=== PATIENT | male | born 1980 | race Caucasian/White ===

== ENCOUNTER 2017-04-20 20:16 | Emergency (ER) | payer BC ==
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
[2017-04-21 00:38] VITALS: BP 114/79
--- NOTE | 2017-04-21 10:41 | CT ---
Head CT Technique: Multiple axial sections through the brain were obtained. Intravenous contrast was not utilized. Comparison: No previous intracranial imaging. Findings: Ventricles along with basal cisterns and sulci over the convexities are within normal limits for the patient's age. No abnormal parenchymal densities are seen. No evidence of intracranial hemorrhage. No midline shift or mass effect is seen. Bone window settings were reviewed which show the visualized sinuses to appear clear. No acute calvarial abnormality is appreciated. Impression: 1. No acute intracranial abnormality is seen. No skull fracture is identified. I agree with preliminary report issued by [facility] ([facility] report finalized on 04/20/17, 10:15 PM Central Time)
--- NOTE | 2017-04-21 10:41 | CT ---
CT cervical spine Technique: Multiple axial sections were obtained from above C1 inferiorly to the mid T2 level. Reconstructed sagittal and coronal images were reviewed. Comparison: No previous study. Findings: Non-fusion identified within the anterior arch of C1 which is a normal variant. Vertebral body heights and disc spaces are preserved. Minimal anterior osteophyte is seen at C6-C7. Visualized mastoid sinuses are clear. Minimal soft tissue density seen around the tympanic membrane on the right side, uncertain if this is within the external auditory canal or middle ear cavity. No acute fracture identified within the cervical spine. No bony central canal stenosis or neural foraminal stenosis is seen. No abnormal subluxation is seen. Impression: 1. Soft tissue density near the tympanic membrane on the right side. Uncertain if this is within the external auditory canal or middle ear cavity. This is likely chronic. 2. 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 3. No acute fracture or abnormal subluxation is seen. Diagnostic code #2 I agree with preliminary report issued by [facility] ([facility] report finalized on 04/20/17, 10:17 PM Central Time)
== END 2017-04-20 23:22 | disposition home or self-care (01) ==
LOC: JD.ED 20:16
DX: T14.8 Other injury of unspecified body region (principal); V89.0XXA Person injured in unspecified motor-vehicle accident, nontraffic, initial encounter; E11.9 Type 2 diabetes mellitus without complications; Z79.84 Long term (current) use of oral hypoglycemic drugs; E03.9 Hypothyroidism, unspecified; E66.9 Obesity, unspecified; Z68.30 Body mass index [BMI] 30.0-30.9, adult; K21.9 Gastro-esophageal reflux disease without esophagitis; Z79.899 Other long term (current) drug therapy
CPT/HCPCS: 70450; 70450-26; 72125; 72125-26; 99283; 99284-25

== ENCOUNTER → 2019-12-21 | Day surgery (SDC) | payer BC ==
[~2019-12-21] MED LIST: Albuterol 0.083% 2.5 MG/3 ML Neb Soln NEB PRN; Clindamycin Phosphate in D5W 900 MG in Premix Bag 1 BAG IV ONE; HYDROmorphone 0.5 MG/0.5 ML Syringe IVPUSH PRN; HYDROmorphone 0.5 MG/0.5 ML Syringe ONE; Ketorolac 30 MG/ML SDV ONE; Lactated Ringers 1,000 ML ONE; Lidocaine 1% 6 ML ONE; Lidocaine 1% with EPINEPHrine 1:100,000 20 ML MDV ONE; Ondansetron 4 MG/2 ML SDV IVPUSH PRN; Ondansetron 4 MG/2 ML SDV ONE; Phenylephrine 1 MG in Sodium Chloride 0.9% 10 ML IV SCH; Propofol 200 MG/20 ML SDV ONE; Sodium Chloride 0.9% 1,000 ML IV SCH; Succinylcholine/Sod PF 100 MG/5 ML SYRINGE IV ONE; diphenhydrAMINE 50 MG/ML SDV IVPUSH PRN; ePHEDrine 50 MG/ML SDV IVPUSH PRN; fentaNYL 100 MCG/2 ML SDV IVPUSH PRN; fentaNYL 250 MCG/5 ML SDV ONE
--- NOTE | 2019-12-21 14:15 | EDM.PDOC ---
ED HPI GENERAL MEDICAL PROBLEM - General Chief Complaint: Skin Complaint Stated Complaint: POSS ABSCESS (POST ULTRASOUND) Time Seen by Provider: 12/21/19 14:15 Source of Information: Reports: Patient History Limitations: Reports: No Limitations - History of Present Illness INITIAL COMMENTS - FREE TEXT/NARRATIVE: 39-year-old male presents to the ED with a painful swelling on his inner aspect of his right thigh adjacent to his scrotum on the right side. He is a type II diabetic and is appreciated that his blood sugars have been running higher the last 4 to 5 days. They are over 200 which is unusual for him. Last night he experienced some chills but did not recognize any fever. He attended the walk- in clinic today at [facility] and they identified by ultrasound that he either had a hematoma or an abscess in his right medial thigh and referred him to the ED. On examination he has a definite deep abscess to the medial aspect of his right thigh. By history he has some systemic signs of infection. Is difficult to walk and to sit. He last ate a protein shake at about 1200 hrs. today. Before that he had a granola bar at 7 this morning. First appreciated pain and some localized swelling in this area last December 16. Patient has not appreciated any drainage from the area. Onset: Gradual Onset Date: 12/17/19 Duration: Day(s):, Getting Worse (Days) Location: Reports: Lower Extremity, Right (Inner aspect of the groin medial right thigh adjacent to the scrotum) Quality: Reports: Ache, Burning, Throbbing Severity: Moderate Improves with: Reports: None Worsens with: Reports: Movement Context: Reports: Other (Maia is occurrence). Denies: Activity, Exercise, Lifting, Sick Contact, Trauma Associated Symptoms: Reports: Fever/Chills, Loss of Appetite (Feels last night and again mildly this morning), Malaise, Other (Sugars have been more elevated than normal). Denies: Nausea/Vomiting Treatments WARRANTY MANAGER: Reports: Acetaminophen Scrotum Pain Score (Numeric/FACES): 2 - Related Data Allergies Allergy/AdvReac Type Severity Reaction Status Date / Time No Known Allergies Allergy Verified 12/21/19 13:00 Home Meds: Home Meds Dulaglutide [Trulicity] 1.5 mg SQ WEEKLY 04/20/17 [History] Gabapentin [Neurontin] 600 mg PO DAILY 04/20/17 [History] Levothyroxine Sodium [Synthroid] 75 mcg PO DAILY 04/20/17 [History] SitaGLIPtin [Januvia] 100 mg PO DAILY 04/20/17 [History] metFORMIN [Glucophage XR] 750 mg PO BEDTIME 04/20/17 [History] Empagliflozin [Jardiance] 25 mg PO DAILY 12/21/19 [History] Venlafaxine [Effexor] 37.5 mg PO DAILY 12/21/19 [History] Past Medical History Cardiovascular History: Reports: High Cholesterol Respiratory History: Reports: None Gastrointestinal History: Reports: GERD Genitourinary History: Reports: None Musculoskeletal History: Reports: Fracture Psychiatric History: Reports: Mood Swings Endocrine/Metabolic History: Reports: Diabetes, Type II, Hypothyroidism, Obesity /BMI 30+ Hematologic History: Reports: None Immunologic History: Reports: None Oncologic (Cancer) History: Reports: None - Infectious Disease History Infectious Disease History: Reports: None - Past Surgical History HEENT Surgical History: Reports: Myringotomy w Tube(s), Tonsillectomy GI Surgical History: Reports: Appendectomy Endocrine Surgical History: Reports: Thyroidectomy Neurological Surgical History: Reports: Lumbar Spine Musculoskeletal Surgical History: Reports: Arthroscopic Knee Dermatological Surgical History: Reports: Other (See Below) Social & Family History - Family History Family Medical History: Noncontributory - Tobacco Use Smoking Status *Q: Never Smoker - Caffeine Use Caffeine Use: Reports: Coffee, Soda - Recreational Drug Use Recreational Drug Use: No - Living Situation & Occupation Living situation: Reports: , with Spouse Occupation: Employed ([employer]) [facility] [facility] - Review of Systems Review Of Systems: See Below Constitutional: Reports: Chills, Malaise, Weakness, Fatigue, Decreased Appetite HEENT: Reports: No Symptoms Respiratory: Reports: No Symptoms Cardiovascular: Reports: No Symptoms Endocrine: Reports: Fatigue (Sugars have been running higher than normal over 200 which is unusual for him.), High Glucose GI/Abdominal: Reports: No Symptoms : Reports: No Symptoms Musculoskeletal: Reports: Other (Pain and swelling medial aspect of his right thigh) Skin: Reports: Other (Development of an abscess on the medial right thigh basically in the inguinal fold adjacent to the scrotum on the right side) Neurological: Reports: No Symptoms Psychiatric: Reports: No Symptoms Hematologic/Lymphatic: Reports: No Symptoms Immunologic: Reports: No Symptoms ED EXAM, SKIN/RASH Exam: See Below Exam Limited By: No Limitations General Appearance: Alert, WD/WN, No Apparent Distress, Other (Which are is 35.8 according to the nurses which is incorrect. Heart rate is 89 respiratory to 16 BP 1 5897 pulse ox 100%.) Eye Exam: Bilateral Eye: Normal Inspection Throat/Mouth: Normal Inspection, Normal Lips, Normal Oropharynx Head: Atraumatic, Normocephalic Neck: Normal Inspection, Supple, Non-Tender, Full Range of Motion Respiratory/Chest: No Respiratory Distress, Lungs Clear, Normal Breath Sounds, No Accessory Muscle Use Cardiovascular: Normal Peripheral Pulses, Regular Rate, Rhythm, No Edema, No Gallop, No Murmur, No Rub Peripheral Pulses: 3+: Posterior Tibial (L), Posterior Tibial (R), Dorsalis Pedis (L), Dorsalis Pedis (R) GI/Abdominal: Normal Bowel Sounds, Soft, Non-Tender, No Organomegaly, No Mass, Pelvis Stable, Other ([place] girth limits ability to palpate solid organs.) (Male) Exam: Other (He has a large scrotum both testes are within normal limits. There is no active infection of the scrotal wall.) Back Exam: Normal Inspection, Full Range of Motion. No: CVA Tenderness (L), CVA Tenderness (R) Extremities: Other (Patient has an abscess that measures clinically 7 cm x 5 cm in an oval shape medial aspect of the right thigh adjacent to the inguinal groin crease. Eroded on the surface it is warm to palpation and very tender. Presents an abscess which is quite deep.) Neurological: Alert, Oriented, CN II-XII Intact, Normal Cognition Psychiatric: Normal Affect, Normal Mood Skin: Warm, Dry, Normal Color, Erythema, Other (And has an abscess inner aspect of right thigh at the inguinal crease measuring 7 x 5 cm and very tender to palpation.) Location, Skin: Lower Extremity, Right (Right inguinal crease area) Associated features: Warmth, Tenderness, Swelling, Crusting Course - Vital Signs Last Recorded V/S: Last Vital Signs Temp 35.8 C L 12/21/19 12:56 Pulse 89 12/21/19 12:56 Resp 16 12/21/19 12:56 BP 158/97 H 12/21/19 12:56 Pulse Ox 100 12/21/19 12:56 - Orders/Labs/Meds Orders: Active Orders 24 hr Category Date Time Status Admission Status [Patient Status] [ADT] Routine ADT 12/21/19 17:45 Active CULTURE BLOOD [BC] Stat Lab 12/21/19 14:39 Received CULTURE BLOOD [BC] Stat Lab 12/21/19 14:48 Received Sodium Chloride 0.9% [Normal Saline] 1,000 ml Med 12/21/19 14:30 Active IV ASDIRECTED Blood Culture x2 Reflex Set [OM.PC] Stat Oth 12/21/19 14:24 Ordered Schedule Procedure [COMM] Stat Oth 12/21/19 17:45 Ordered Medication Orders Sodium Chloride (Normal Saline) 1,000 mls @ 150 mls/hr IV ASDIRECTED JAYLEN Last Admin: 12/21/19 15:01 Dose: 150 mls/hr Labs: Laboratory Tests 12/21/19 12/21/19 12/21/19 Range/Units 14:48 14:48 14:48 WBC 7.81 (4.23-9.07) K/mm3 RBC 5.29 (4.63-6.08) M/mm3 Hgb 14.2 (13.7-17.5) gm/dl Hct 42.7 (40.1-51.0) % MCV 80.7 (79.0-92.2) fl MCH 26.8 (25.7-32.2) pg MCHC 33.3 (32.2-35.5) g/dl RDW Std Deviation 41.7 (35.1-43.9) fL Plt Count 181 (163-337) K/mm3 MPV 9.5 (9.4-12.3) fl Neutrophils % (Manual) 58 (40-60) % Band Neutrophils % 0 (0-10) % Lymphocytes % (Manual) 29 (20-40) % Atypical Lymphs % 1 % Monocytes % (Manual) 6 (2-10) % Eosinophils % (Manual) 6 (0.8-7.0) % Basophils % (Manual) 0 L (0.2-1.2) Platelet Estimate Adequate Poikilocytosis 1+ slight Ovalocytes 1+ slight RBC Morph Comment Not Reportable Sodium 139 (136-145) mEq/L Potassium 4.1 (3.5-5.1) mEq/L Chloride 102 (98-107) mEq/L Carbon Dioxide 25 (21-32) mEq/L Anion Gap 16.1 H (5-15) BUN 19 H (7-18) mg/dL Creatinine 1.1 (0.7-1.3) mg/dL Est Cr Clr Drug Dosing 105.86 mL/min Estimated GFR (MDRD) > 60 (>60) mL/min BUN/Creatinine Ratio 17.3 (14-18) Glucose 171 H (74-106) mg/dL POC Glucose (70-105) mg/dL Hemoglobin A1c 7.80 H (4.50-6.20) % Calcium 9.4 (8.5-10.1) mg/dL Magnesium 2.0 (1.8-2.4) mg/dl Total Bilirubin 1.0 (0.2-1.0) mg/dL AST 29 (15-37) U/L ALT 62 (16-63) U/L Alkaline Phosphatase 70 (46-116) U/L C-Reactive Protein 2.5 H* (<1.0) mg/dL Total Protein 8.0 (6.4-8.2) g/dl Albumin 4.3 (3.4-5.0) g/dl Globulin 3.7 gm/dL Albumin/Globulin Ratio 1.2 (1-2) 12/21/19 Range/Units 18:21 WBC (4.23-9.07) K/mm3 RBC (4.63-6.08) M/mm3 Hgb (13.7-17.5) gm/dl Hct (40.1-51.0) % MCV (79.0-92.2) fl MCH (25.7-32.2) pg MCHC (32.2-35.5) g/dl RDW Std Deviation (35.1-43.9) fL Plt Count (163-337) K/mm3 MPV (9.4-12.3) fl Neutrophils % (Manual) (40-60) % Band Neutrophils % (0-10) % Lymphocytes % (Manual) (20-40) % Atypical Lymphs % % Monocytes % (Manual) (2-10) % Eosinophils % (Manual) (0.8-7.0) % Basophils % (Manual) (0.2-1.2) Platelet Estimate Poikilocytosis Ovalocytes RBC Morph Comment Sodium (136-145) mEq/L Potassium (3.5-5.1) mEq/L Chloride (98-107) mEq/L Carbon Dioxide (21-32) mEq/L Anion Gap (5-15) BUN (7-18) mg/dL Creatinine (0.7-1.3) mg/dL Est Cr Clr Drug Dosing mL/min Estimated GFR (MDRD) (>60) mL/min BUN/Creatinine Ratio (14-18) Glucose (74-106) mg/dL POC Glucose 114 H (70-105) mg/dL Hemoglobin A1c (4.50-6.20) % Calcium (8.5-10.1) mg/dL Magnesium (1.8-2.4) mg/dl Total Bilirubin (0.2-1.0) mg/dL AST (15-37) U/L ALT (16-63) U/L Alkaline Phosphatase (46-116) U/L C-Reactive Protein (<1.0) mg/dL Total Protein (6.4-8.2) g/dl Albumin (3.4-5.0) g/dl Globulin gm/dL Albumin/Globulin Ratio (1-2) Meds: Medications Generic Name Dose Route Start Last Admin Trade Name Freq PRN Reason Stop Dose Admin Sodium Chloride 1,000 mls @ 150 mls/hr 12/21/19 14:30 12/21/19 15:01 Normal Saline IV 150 mls/hr ASDIRECTED JAYLEN Administration Discontinued Medications Generic Name Dose Route Start Last Admin Trade Name Freq PRN Reason Stop Dose Admin Fentanyl Confirm 12/21/19 18:05 Sublimaze Administered 12/21/19 18:06 Dose 250 mcg .ROUTE .STK-MED ONE Hydromorphone HCl Confirm 12/21/19 18:04 Dilaudid Administered 12/21/19 18:05 Dose 0.5 mg .ROUTE .STK-MED ONE Clindamycin Phosphate 900 mg/ 50 mls @ 100 mls/hr 12/21/19 14:25 12/21/19 15: 02 Premix IV 12/21/19 14:54 100 mls/hr ONETIME ONE Administration Lidocaine HCl Confirm 12/21/19 18:04 Xylocaine-Mpf 1% Administered 12/21/19 18:05 Dose 6 mls @ as directed .ROUTE .STK-MED ONE Lactated Ringer's Confirm 12/21/19 18:04 Ringers, Lactated Administered 12/21/19 18:05 Dose 1,000 mls @ as directed .ROUTE .STK-MED ONE Ketorolac Tromethamine Confirm 12/21/19 18:04 Toradol Administered 12/21/19 18:05 Dose 30 mg .ROUTE .STK-MED ONE Lidocaine/Epinephrine Confirm 12/21/19 18:08 Xylocaine 1% With Epinephrine 1:100,000 Administered 12/21/19 18:09 Dose 20 ml .ROUTE .STK-MED ONE Ondansetron HCl Confirm 12/21/19 18:04 Zofran Administered 12/21/19 18:05 Dose 4 mg .ROUTE .STK-MED ONE Propofol Confirm 12/21/19 18:04 Diprivan 20 Ml Administered 12/21/19 18:05 Dose 400 mg .ROUTE .STK-MED ONE Propofol Confirm 12/21/19 18:05 Diprivan 20 Ml Administered 12/21/19 18:06 Dose 200 mg .ROUTE .STK-MED ONE - Radiology Interpretation Free Text/Narrative:: 39-year-old male presents to the ED not feeling well for the last 3 to 4 days. He recognizes blood sugars have been running over 200 which is abnormal for him as well. He states over the last 4 to 5 days he is noted a gradual increased swelling on the inner aspect of his right thigh to the point that it is hard to walk and sit at this time. He had chills last night and chills again this morning. On examination he has an obvious abscess oval-shaped larger than the hands a medial aspect of the right thigh in the inguinal fold. It is a very deep abscess and puts him at risk of days gangrene. He is a type II diabetic but states that his control overall has been very good. He will have IV normal saline at 150 mils per hour started. Will be given Dilaudid 1 mg IV for pain relief with Reglan 10 mg IV. Routine labs including blood cultures x2 will be collected. He will then receive clindamycin 900 mg IV. We will have the surgeon see him in consultation due to the very difficult area to get that and he is over 300 pounds. The abscess appears to go very deep and needs to be opened and drained and the loculations broken down to prevent aggressive spread of infection in a vulnerable area and a diabetic. - Re-Assessments/Exams Free Text/Narrative Re-Assessment/Exam: 12/21/19 15:25 I was able to speak with Dr. Mane and he will see the patient after the office is finished since the patient ate at noon he really is not an operative candidate till after 430 to 5 PM today. Time none of the labs are back. 12/21/19 15:56 Labs reveal total white count of 7.81 with differential pending hemoglobin is 14.2 with hematocrit of 42.7. Platelet counts 181,000. Sodium 139 with a potassium of 4.1. Chloride 102 with a bicarb of 25. Anion gap is 16.1. BUN is 19 creatinine is 1.1. Glucose is 171. Hemoglobin A1c was 7.80. Calcium is 9.4 magnesium is 2.0 liver function is normal C-reactive protein minimally elevated at 2.5. Total protein is 8.0 with an albumin fraction of 4.3. 12/21/19 17:08 patient is resting comfortably at this time. We are awaiting consultation with Dr. Mane. 12/21/19 17:26 Dr Mane is her and will see the patient in the ED. 12/21/19 17:51 Dr. Mane has decided to take this fellow to the OR. He last had a protein shake at noon today and therefore should be cleared by anesthesia. His incision and drainage of the large abscess in his right inguinal fold and medial thigh. 12/21/19 18:38 we did finally get the over read on ultrasound performed earlier today at [facility]. The over read indicates that within the right groin there is a complex appearing lesion measuring 1.8 x 1.4 x 2.2 cm without significant vascular flow within it centrally. This central aspect of it is primarily hypo-/anechoic suggesting underlying fluid. Increased vascularity around the fluid collection. Overall findings are suggestive of underlying abscess. Testicles are normal in size. Echogenicity and Doppler evaluation no districts discrete testicular mass identified the right and left epididymis are normal Departure - Departure Time of Disposition: 17:52 Disposition: DC/Tfer to Critical Access [facility] Condition: Fair Clinical Impression: Abscess of right groin - Discharge Information *PRESCRIPTION DRUG MONITORING PROGRAM REVIEWED*: Not Applicable *COPY OF PRESCRIPTION DRUG MONITORING REPORT IN PATIENT MIKAYLA: Not Applicable Sepsis Event Note - Evaluation Sepsis Screening Result: No Definite Risk - Focused Exam Vital Signs: Vital Signs Temp Pulse Resp BP Pulse Ox 12/21/19 12:56 35.8 C L 89 16 158/97 H 100 Date Exam was Performed: 12/21/19 Time Exam was Performed: 18:38 - My Orders Last 24 Hours: My Active Orders 12/21/19 14:24 Blood Culture x2 Reflex Set [OM.PC] Stat 12/21/19 14:30 Sodium Chloride 0.9% [Normal Saline] 1,000 ml IV ASDIRECTED 12/21/19 14:39 CULTURE BLOOD [BC] Stat 12/21/19 14:48 CULTURE BLOOD [BC] Stat 12/21/19 17:45 Admission Status [Patient Status] [ADT] Routine Schedule Procedure [COMM] Stat - Assessment/Plan Last 24 Hours: My Active Orders 12/21/19 14:24 Blood Culture x2 Reflex Set [OM.PC] Stat 12/21/19 14:30 Sodium Chloride 0.9% [Normal Saline] 1,000 ml IV ASDIRECTED 12/21/19 14:39 CULTURE BLOOD [BC] Stat 12/21/19 14:48 CULTURE BLOOD [BC] Stat 12/21/19 17:45 Admission Status [Patient Status] [ADT] Routine Schedule Procedure [COMM] Stat
[2019-12-21 15:50] LABS: HEMOGLOBIN A1C 7.8 % (4.50-6.20)
--- NOTE | 2019-12-21 17:47 | PCM.PREANE ---
Preanesthetic Assessment - Anesthesia/Transfusion/Family Hx Anesthesia History: Prior Anesthesia Without Reaction Family History of Anesthesia Reaction: No Transfusion History: No Prior Transfusion(s) Intubation History: Unknown - Review of Systems General: No Symptoms, Fatigue, Malaise Pulmonary: No Symptoms (ETOH: occasionally) Cardiovascular: No Symptoms (elevated cholesterol) Gastrointestinal: No Symptoms (GERD-controlled), Decreased Appetite Neurological: No Symptoms (History of back surgery. No chronic back pain noted today) Other: Reports: None (Mood swings-effexor), Diabetes (blood sugar @ 1448= 171, repeat @ 5890=798), Thyroid Problems (hypothyroid) - Physical Assessment NPO Status Date: 12/21/19 NPO Status Time: 12:00 Vital Signs: Last Vital Signs Temp 35.8 C L 12/21/19 12:56 Pulse 89 12/21/19 12:56 Resp 16 12/21/19 12:56 BP 158/97 H 12/21/19 12:56 Pulse Ox 100 12/21/19 12:56 Height: 1.88 m Weight: 156.489 kg ASA Class: 2E Mental Status: Alert & Oriented x3 Airway Class: Mallampati = 2 Dentition: Reports: Normal Dentition, Caries Thyro-Mental Finger Breadths: 3 Mouth Opening Finger Breadths: 3 ROM/Head Extension: Full Lungs: Clear to Auscultation, Normal Respiratory Effort Cardiovascular: Regular Rate, Regular Rhythm, No Murmurs - Lab Values: Laboratory Last Values WBC 7.81 K/mm3 (4.23-9.07) 12/21/19 14:48 RBC 5.29 M/mm3 (4.63-6.08) 12/21/19 14:48 Hgb 14.2 gm/dl (13.7-17.5) 12/21/19 14:48 Hct 42.7 % (40.1-51.0) 12/21/19 14:48 MCV 80.7 fl (79.0-92.2) 12/21/19 14:48 MCH 26.8 pg (25.7-32.2) 12/21/19 14:48 MCHC 33.3 g/dl (32.2-35.5) 12/21/19 14:48 RDW Std Deviation 41.7 fL (35.1-43.9) 12/21/19 14:48 Plt Count 181 K/mm3 (163-337) 12/21/19 14:48 MPV 9.5 fl (9.4-12.3) 12/21/19 14:48 Neutrophils % (Manual) 58 % (40-60) 12/21/19 14:48 Band Neutrophils % 0 % (0-10) 12/21/19 14:48 Lymphocytes % (Manual) 29 % (20-40) 12/21/19 14:48 Atypical Lymphs % 1 % 12/21/19 14:48 Monocytes % (Manual) 6 % (2-10) 12/21/19 14:48 Eosinophils % (Manual) 6 % (0.8-7.0) 12/21/19 14:48 Basophils % (Manual) 0 (0.2-1.2) L 12/21/19 14:48 Platelet Estimate Adequate 12/21/19 14:48 Poikilocytosis 1+ slight 12/21/19 14:48 Ovalocytes 1+ slight 12/21/19 14:48 RBC Morph Comment Not Reportable 12/21/19 14:48 Sodium 139 mEq/L (136-145) 12/21/19 14:48 Potassium 4.1 mEq/L (3.5-5.1) 12/21/19 14:48 Chloride 102 mEq/L (98-107) 12/21/19 14:48 Carbon Dioxide 25 mEq/L (21-32) 12/21/19 14:48 Anion Gap 16.1 (5-15) H 12/21/19 14:48 BUN 19 mg/dL (7-18) H 12/21/19 14:48 Creatinine 1.1 mg/dL (0.7-1.3) 12/21/19 14:48 Est Cr Clr Drug Dosing 105.86 mL/min 12/21/19 14:48 Estimated GFR (MDRD) > 60 mL/min (>60) 12/21/19 14:48 BUN/Creatinine Ratio 17.3 (14-18) 12/21/19 14:48 Glucose 171 mg/dL (74-106) H 12/21/19 14:48 Hemoglobin A1c 7.80 % (4.50-6.20) H 12/21/19 14:48 Calcium 9.4 mg/dL (8.5-10.1) 12/21/19 14:48 Magnesium 2.0 mg/dl (1.8-2.4) 12/21/19 14:48 Total Bilirubin 1.0 mg/dL (0.2-1.0) 12/21/19 14:48 AST 29 U/L (15-37) 12/21/19 14:48 ALT 62 U/L (16-63) 12/21/19 14:48 Alkaline Phosphatase 70 U/L (46-116) 12/21/19 14:48 C-Reactive Protein 2.5 mg/dL (<1.0) H* 12/21/19 14:48 Total Protein 8.0 g/dl (6.4-8.2) 12/21/19 14:48 Albumin 4.3 g/dl (3.4-5.0) 12/21/19 14:48 Globulin 3.7 gm/dL 12/21/19 14:48 Albumin/Globulin Ratio 1.2 (1-2) 12/21/19 14:48 Above labs reviewed and noted and within acceptable ranges to proceed with procedure. - Allergies Allergies/Adverse Reactions: Allergies Allergy/AdvReac Type Severity Reaction Status Date / Time No Known Allergies Allergy Verified 12/21/19 13:00 - Anesthesia Plan Pre-Op Medication Ordered: None - Acknowledgements Anesthesia Type Planned: General Anesthesia Pt an Appropriate Candidate for the Planned Anesthesia: Yes Alternatives and Risks of Anesthesia Discussed w Pt/Guardian: Yes Pt/Guardian Understands and Agrees with Anesthesia Plan: Yes PreAnesthesia Questionnaire Cardiovascular History: Reports: High Cholesterol Respiratory History: Reports: None Gastrointestinal History: Reports: GERD Genitourinary History: Reports: None Musculoskeletal History: Reports: Fracture Psychiatric History: Reports: Mood Swings Endocrine/Metabolic History: Reports: Diabetes, Type II, Hypothyroidism, Obesity /BMI 30+ Hematologic History: Reports: None Immunologic History: Reports: None Oncologic (Cancer) History: Reports: None - Infectious Disease History Infectious Disease History: Reports: None - Past Surgical History HEENT Surgical History: Reports: Myringotomy w Tube(s), Tonsillectomy GI Surgical History: Reports: Appendectomy Endocrine Surgical History: Reports: Thyroidectomy Neurological Surgical History: Reports: Lumbar Spine Musculoskeletal Surgical History: Reports: Arthroscopic Knee Dermatological Surgical History: Reports: Other (See Below) - SUBSTANCE USE Smoking Status *Q: Never Smoker Recreational Drug Use History: No - HOME MEDS Home Medications: Home Meds Dulaglutide [Trulicity] 1.5 mg SQ WEEKLY 04/20/17 [History] Gabapentin [Neurontin] 600 mg PO DAILY 04/20/17 [History] Levothyroxine Sodium [Synthroid] 75 mcg PO DAILY 04/20/17 [History] SitaGLIPtin [Januvia] 100 mg PO DAILY 04/20/17 [History] metFORMIN [Glucophage XR] 750 mg PO BEDTIME 04/20/17 [History] Empagliflozin [Jardiance] 25 mg PO DAILY 12/21/19 [History] Venlafaxine [Effexor] 37.5 mg PO DAILY 12/21/19 [History] - CURRENT (IN HOUSE) MEDS Current Meds: Current Medications Sodium Chloride (Normal Saline) 1,000 mls @ 150 mls/hr IV ASDIRECTED [facility] Last Admin: 12/21/19 15:01 Dose: 150 mls/hr Discontinued Medications Clindamycin Phosphate 900 mg/ (Premix) 50 mls @ 100 mls/hr IV ONETIME ONE Stop: 12/21/19 14:54 Last Admin: 12/21/19 15:02 Dose: 100 mls/hr
--- NOTE | 2019-12-21 18:09 | PCM.CONS ---
H&P History of Present Illness - General Date of Service: 12/21/19 Admit Problem/Dx: Admission Diagnosis/Problem Admission Diagnosis/Problem Abscess of peritoneum Source of Information: Patient History Limitations: Reports: No Limitations - History of Present Illness Initial Comments - Free Text/Narative: Patient noted a small bump on his right perineum over the past week. It has grown since and has gotten more tender. Tenderness is usually mild to moderate, dull, worse with activity and better with rest. He has not fevers but had chills yesterday. Has hx of pilonidal cyst s/p excision many yrs ago. Has hx of prior small skin abscesses not requiring surgical drainage. Onset of Symptoms: Reports: Gradual Duration of Symptoms: Reports: Getting Worse Location: Reports: Other (perineal) Quality: Reports: Dull Severity: Moderate Improves with: Reports: Immobilization Worsens with: Reports: Movement Associated Symptoms: Reports: Fever/Chills (chills) Scrotum Pain Score (Numeric/FACES): 2 - Related Data Allergies/Adverse Reactions: Allergies Allergy/AdvReac Type Severity Reaction Status Date / Time No Known Allergies Allergy Verified 12/21/19 13:00 Home Medications: Home Meds Dulaglutide [Trulicity] 1.5 mg SQ WEEKLY 04/20/17 [History] Gabapentin [Neurontin] 600 mg PO DAILY 04/20/17 [History] Levothyroxine Sodium [Synthroid] 75 mcg PO DAILY 04/20/17 [History] SitaGLIPtin [Januvia] 100 mg PO DAILY 04/20/17 [History] metFORMIN [Glucophage XR] 750 mg PO BEDTIME 04/20/17 [History] Empagliflozin [Jardiance] 25 mg PO DAILY 12/21/19 [History] Venlafaxine [Effexor] 37.5 mg PO DAILY 12/21/19 [History] Past Medical History Cardiovascular History: Reports: High Cholesterol Respiratory History: Reports: None Gastrointestinal History: Reports: GERD Genitourinary History: Reports: None Musculoskeletal History: Reports: Fracture Psychiatric History: Reports: Mood Swings Endocrine/Metabolic History: Reports: Diabetes, Type II, Hypothyroidism, Obesity /BMI 30+ Hematologic History: Reports: None Immunologic History: Reports: None Oncologic (Cancer) History: Reports: None - Infectious Disease History Infectious Disease History: Reports: None - Past Surgical History HEENT Surgical History: Reports: Myringotomy w Tube(s), Tonsillectomy GI Surgical History: Reports: Appendectomy Endocrine Surgical History: Reports: Thyroidectomy Neurological Surgical History: Reports: Lumbar Spine Musculoskeletal Surgical History: Reports: Arthroscopic Knee Dermatological Surgical History: Reports: Other (See Below) Social & Family History - Family History Family Medical History: Noncontributory - Tobacco Use Smoking Status *Q: Never Smoker - Caffeine Use Caffeine Use: Reports: Coffee, Soda - Recreational Drug Use Recreational Drug Use: No - Living Situation & Occupation Living situation: Reports: , with Spouse Occupation: Employed ([employer]) H&P Review of Systems - Review of Systems: Review Of Systems: See Below General: Reports: No Symptoms HEENT: Reports: No Symptoms Pulmonary: Reports: No Symptoms Cardiovascular: Reports: No Symptoms Gastrointestinal: Reports: No Symptoms Genitourinary: Reports: No Symptoms Musculoskeletal: Reports: No Symptoms Skin: Reports: Other (right perineal abscess) Psychiatric: Reports: No Symptoms Neurological: Reports: No Symptoms Exam - Exam Exam: See Below - Vital Signs Vital Signs: Last Vital Signs Temp 96.5 F L 12/21/19 12:56 Pulse 89 12/21/19 12:56 Resp 16 12/21/19 12:56 BP 158/97 H 12/21/19 12:56 Pulse Ox 100 12/21/19 12:56 Weight: 156.489 kg - Exam General: Alert, Oriented, Cooperative, Mild Distress Lungs: Clear to Auscultation, Normal Respiratory Effort Cardiovascular: Regular Rate, Regular Rhythm, Normal S1, Normal S2 GI/Abdominal Exam: Normal Bowel Sounds, Soft, Non-Tender (Male) Exam: No Hernia, Other (there is induration and fluctance on the right aspect of the penile base ) - Patient Data Lab Results Last 24 hrs: Laboratory Results - last 24 hr 12/21/19 12/21/19 12/21/19 Range/Units 14:48 14:48 14:48 WBC 7.81 (4.23-9.07) K/mm3 RBC 5.29 (4.63-6.08) M/mm3 Hgb 14.2 (13.7-17.5) gm/dl Hct 42.7 (40.1-51.0) % MCV 80.7 (79.0-92.2) fl MCH 26.8 (25.7-32.2) pg MCHC 33.3 (32.2-35.5) g/dl RDW Std Deviation 41.7 (35.1-43.9) fL Plt Count 181 (163-337) K/mm3 MPV 9.5 (9.4-12.3) fl Neutrophils % (Manual) 58 (40-60) % Band Neutrophils % 0 (0-10) % Lymphocytes % (Manual) 29 (20-40) % Atypical Lymphs % 1 % Monocytes % (Manual) 6 (2-10) % Eosinophils % (Manual) 6 (0.8-7.0) % Basophils % (Manual) 0 L (0.2-1.2) Platelet Estimate Adequate Poikilocytosis 1+ slight Ovalocytes 1+ slight RBC Morph Comment Not Reportable Sodium 139 (136-145) mEq/L Potassium 4.1 (3.5-5.1) mEq/L Chloride 102 (98-107) mEq/L Carbon Dioxide 25 (21-32) mEq/L Anion Gap 16.1 H (5-15) BUN 19 H (7-18) mg/dL Creatinine 1.1 (0.7-1.3) mg/dL Est Cr Clr Drug Dosing 105.86 mL/min Estimated GFR (MDRD) > 60 (>60) mL/min BUN/Creatinine Ratio 17.3 (14-18) Glucose 171 H (74-106) mg/dL Hemoglobin A1c 7.80 H (4.50-6.20) % Calcium 9.4 (8.5-10.1) mg/dL Magnesium 2.0 (1.8-2.4) mg/dl Total Bilirubin 1.0 (0.2-1.0) mg/dL AST 29 (15-37) U/L ALT 62 (16-63) U/L Alkaline Phosphatase 70 (46-116) U/L C-Reactive Protein 2.5 H* (<1.0) mg/dL Total Protein 8.0 (6.4-8.2) g/dl Albumin 4.3 (3.4-5.0) g/dl Globulin 3.7 gm/dL Albumin/Globulin Ratio 1.2 (1-2) Result Diagrams: 12/21/19 14:48 12/21/19 14:48 Sepsis Event Note - Evaluation Sepsis Screening Result: No Definite Risk - Focused Exam Vital Signs: Vital Signs Temp Pulse Resp BP Pulse Ox 12/21/19 12:56 96.5 F L 89 16 158/97 H 100 Date Exam was Performed: 12/21/19 Time Exam was Performed: 18:04 Consult PN Assessment/Plan Procedures: Procedures ASSAY OF CREATININE (09/22/17) CT HEAD/BRAIN W/O DYE (04/20/17) CT NECK SPINE W/O DYE (04/20/17) EMERGENCY DEPT VISIT (04/20/17) MRI LUMBAR SPINE W/O & W/DYE (09/22/17) ROUTINE VENIPUNCTURE (09/22/17) US EXAM SCROTUM (09/17/17) VASCULAR STUDY (09/17/17) X-RAY EXAM L-2 SPINE 4/>VWS (10/14/16) Problem List Initiated/Reviewed/Updated: No Plan: Has right perineal abscess. He would like surgical drainage. Cannot tolerate bedside I&D due to pain therefore wants sedation. I discussed with him risks, benefits and alternatives. Risks discussed include but not limited to bleeding, injury to adjacent structures, recurrence, need for further care. Wound care including BID packing were reviewed. Informed consent was obtained.
--- NOTE | 2019-12-21 19:42 | PCM.POSTAN ---
POST ANESTHESIA ASSESSMENT - MENTAL STATUS Mental Status: Alert - VITAL SIGNS Vital Signs: Last Vital Signs Temp 37.0 C 12/21/19 19:40 Pulse 94 12/21/19 19:40 Resp 18 12/21/19 19:40 BP 132/87 12/21/19 19:40 Pulse Ox 98 12/21/19 19:40 - RESPIRATORY Respiratory Status: Respiratory Rate WNL, Airway Patent, O2 Saturation Stable - CARDIOVASCULAR CV Status: Pulse Rate WNL, Blood Pressure Stable - GASTROINTESTINAL GI Status: No Symptoms - POST OP HYDRATION Hydration Status: Adequate & Stable
--- NOTE | 2019-12-21 19:43 | PCM48HPAN ---
Post Anesthesia Note - EVALUATION WITHIN 48HRS OF ANESTHETIC Vital Signs in Normal Range: Yes Patient Participated in Evaluation: Yes Respiratory Function Stable: Yes Airway Patent: Yes Cardiovascular Function Stable: Yes Hydration Status Stable: Yes Pain Control Satisfactory: Yes Nausea and Vomiting Control Satisfactory: Yes Mental Status Recovered: Yes Vital Signs: Last Vital Signs Temp 37.0 C 12/21/19 19:40 Pulse 94 12/21/19 19:40 Resp 18 12/21/19 19:40 BP 132/87 12/21/19 19:40 Pulse Ox 98 12/21/19 19:40
[2019-12-21 20:12] VITALS: BP 123/73; PULSE 90
--- NOTE | 2019-12-21 20:49 | OR ---
DATE OF OPERATION: 12/21/2019 SURGEON: Karina Mane MD PREOPERATIVE DIAGNOSIS: Right perineal abscess. POSTOPERATIVE DIAGNOSIS: Right perineal abscess. OPERATION PERFORMED: Incision and drainage of right perineal abscess. ANESTHESIA: General endotracheal. ESTIMATED BLOOD LOSS: 5 mL. FINDINGS: Right perineal abscess. INDICATIONS AND CONSENT: The patient is a 39-year-old male with diabetes and obesity, who had right perineal swelling for a week. The swelling became progressively worse and developed induration and erythema. The patient underwent an ultrasound that confirmed a fluid collection and was sent to the emergency department, and I was consulted for this area. I saw the patient, examined the area, confirmed an abscess, and the patient wanted to proceed under anesthesia. Therefore, the patient was taken to the operating room for this. Prior to taking the patient to the operating room, we discussed risks, benefits, and alternatives, and informed consent was obtained. DESCRIPTION OF PROCEDURE: The patient was taken to the operating room and placed in supine position. Following induction of general endotracheal anesthesia, the position was modified to lithotomy. The perineum was prepped with iodine. No antibiotics were needed as the patient had already received clindamycin. Then, the patient was draped in a sterile fashion. A time-out was performed. We began by examining the perineal area. There was only one 7 x 5 cm area of phlegmon to the base of the scrotum with overlying fluctuance and erythema. Lidocaine was injected in this area. This consisted of 1% lidocaine with epinephrine. Once this was done, using a scalpel, the most fluctuant portion was incised immediately and there was expulsion of purulent material. Culture swabs were taken for cultures. Then, the loculations were broken broadly with a finger. The area was rinsed with copious amount of sterile saline. There was no significant bleeding, and the wound was packed with 1/4 inch iodoform gauze after all the abscess has been cleaned out. Then, the wound was dressed with 4x4, ABD, and mesh patties. This marked the end of the procedure. At the end of the procedure, all instruments, sharps, and sponges were accounted for and found to be correct x2. The patient was awoken from anesthesia and taken to the PACU in stable condition. The patient to be discharged home today. The patient is to continue packing the wound twice daily with iodoform and follow up with me in 1 week for postop check. MMODAL /[id number] CRISTIANO
== END | disposition home or self-care (01) ==
LOC: JD.ED 12:50 → JD.SDS 17:50
PROVIDERS: ATTEND Surgery
DX: L02.215 Cutaneous abscess of perineum (principal); E78.00 Pure hypercholesterolemia, unspecified; E11.9 Type 2 diabetes mellitus without complications; E03.9 Hypothyroidism, unspecified; E66.9 Obesity, unspecified; Z79.84 Long term (current) use of oral hypoglycemic drugs; Z79.899 Other long term (current) drug therapy; Z79.890 Hormone replacement therapy; Z68.41 Body mass index [BMI] 40.0-44.9, adult
CPT/HCPCS: 00400; 36415; 80053; 82962; 83036; 83735; 85007; 85027; 86140; 87040; 87070; 87075; 87205; 96361; 96365; 99284-25; 99285; J0330; J1170; J1885; J2001; J2405; J2704; J3010; J3490; J7030; J7120

== ENCOUNTER 2021-05-08 18:04 | Emergency (ER) | payer BC, OTHER, SELFPAY ==
[2021-05-08 18:18] VITALS: BP 115/74; PULSE 77
[2021-05-08] MEDS ORDERED: Alum Hydrox/Mag Hydrox/Simeth 30 ML, Lidocaine 2% 15 ML PO ONE ×2 (18:36)
--- NOTE | 2021-05-08 18:54 | EDM.PDOC ---
ED HPI GENERAL MEDICAL PROBLEM - General Chief Complaint: Chest Pain Stated Complaint: CHEST PRESSURE Time Seen by Provider: 05/08/21 18:23 Source of Information: Reports: Patient History Limitations: Reports: No Limitations - History of Present Illness INITIAL COMMENTS - FREE TEXT/NARRATIVE: 41-year-old male presents the emergency department with complaints of throat tightness and upper epigastric discomfort. Per the patient report he was at work yesterday when he developed a sensation of his throat closing off. He states that it did not seem to affect his work so he stayed. He states that resolved towards evening however he woke this morning and had the sensation once again. He also states that over the course of the past couple of days he has had some mid upper abdominal discomfort. Of note he states he has had some issues with reflux in the past and currently takes a proton pump inhibitor daily. He also states that this afternoon he developed bilateral shoulder discomfort. Of note he states that last week he was at the [employer] and after going on several rides he noticed that his hands were numb. He states he does have some issues with numbness to his fourth and fifth fingers over the course the past month however he states he has been getting massages and this has seemed to help. He denies any history of VA or stroke. He is a diabetic and he takes oral agents only. As stated above he does have a history of GERD. He is obese with a BMI of 43.3. He also notes that yesterday at work he had an episode of lightheadedness which he states lasted for maybe a second and then resolved. He does not recall having any chest pain or shortness of breath or diaphoresis associated with that. He denies any smoking history and rarely drinks. He states his primary care provider was an internal medicine doctor at [facility] in [place] however she has moved out of [facility]. He is slated to start seeing Dr. Reynoso, internal medicine physician at [facility] sometime in June for an initial visit. He states he did have Covid a year ago last May. Chest Pain Score (Numeric/FACES): 3 - Related Data Allergies Allergy/AdvReac Type Severity Reaction Status Date / Time No Known Allergies Allergy Verified 12/21/19 13:00 Home Meds: Home Meds Dulaglutide [Trulicity] 1.5 mg SQ WEEKLY 04/20/17 [History] Gabapentin [Neurontin] 600 mg PO DAILY 04/20/17 [History] Levothyroxine Sodium [Synthroid] 75 mcg PO DAILY 04/20/17 [History] SitaGLIPtin [Januvia] 100 mg PO DAILY 04/20/17 [History] metFORMIN [Glucophage XR] 500 mg PO BID 04/20/17 [History] Empagliflozin [Jardiance] 25 mg PO DAILY 12/21/19 [History] Venlafaxine [Effexor] 37.5 mg PO DAILY 12/21/19 [History] Cetirizine [ZyrTEC] 10 mg PO DAILY 05/08/21 [History] Past Medical History Cardiovascular History: Reports: High Cholesterol Respiratory History: Reports: None Gastrointestinal History: Reports: GERD Genitourinary History: Reports: None Musculoskeletal History: Reports: Fracture Psychiatric History: Reports: Mood Swings Endocrine/Metabolic History: Reports: Diabetes, Type II, Hypothyroidism, Obesity/BMI 30+ Hematologic History: Reports: None Immunologic History: Reports: None Oncologic (Cancer) History: Reports: None - Infectious Disease History Infectious Disease History: Reports: None - Past Surgical History HEENT Surgical History: Reports: Myringotomy w Tube(s), Tonsillectomy GI Surgical History: Reports: Appendectomy Endocrine Surgical History: Reports: Thyroidectomy Neurological Surgical History: Reports: Lumbar Spine Musculoskeletal Surgical History: Reports: Arthroscopic Knee Dermatological Surgical History: Reports: Other (See Below) Social & Family History - Family History Family Medical History: No Pertinent Family History - Tobacco Use Tobacco Use Status *Q: Never Tobacco User - Caffeine Use Caffeine Use: Reports: Soda - Recreational Drug Use Recreational Drug Use: No - Living Situation & Occupation Living situation: Reports: , with Spouse Occupation: Employed ([employer]) ED ROS GENERAL - Review of Systems Review Of Systems: Comprehensive ROS is negative, except as noted in HPI. ED EXAM, GENERAL - Physical Exam Exam: See Below General Appearance: Alert, WD/WN, No Apparent Distress Ears: Normal External Exam, Hearing Grossly Normal Nose: Normal Inspection Throat/Mouth: Normal Inspection, Normal Lips, Normal Voice, No Airway Compromise Head: Atraumatic Neck: Normal Inspection, Supple, Non-Tender. No: Lymphadenopathy (L), Lymphadenopathy (R) Respiratory/Chest: No Respiratory Distress, Lungs Clear, Normal Breath Sounds, No Accessory Muscle Use, Chest Non-Tender Cardiovascular: Normal Peripheral Pulses, Regular Rate, Rhythm, No Edema, No Murmur Peripheral Pulses: 2+: Radial (L), Radial (R) GI/Abdominal: Normal Bowel Sounds, Soft, Non-Tender, No Distention (Male) Exam: Deferred Rectal (Males) Exam: Deferred Back Exam: Normal Inspection, Full Range of Motion Extremities: Normal Inspection, Normal Range of Motion, Non-Tender, No Pedal Edema, Normal Capillary Refill Neurological: Alert, Oriented, Normal Cognition Psychiatric: Normal Affect, Normal Mood Skin Exam: Warm, Dry, Intact, Normal Color, No Rash Lymphatic: No Adenopathy #1 Interpretation EKG Date: 05/08/21 Time: 18:15 Rhythm: NSR Rate (Beats/Min): 68 [place]: Normal P-Wave: Present QRS: Normal ST-T: Normal QT: Normal Comparison: NA - No Prior EKG EKG Interpretation Comments: Per Dr. Garay interpretation: Sinus rhythm at 68 bpm; low voltage, precordial leads Course - Vital Signs Text/Narrative:: As stated above the patient developed tightening sensation noted to his throat that started yesterday and resolved by evening however this morning when he woke it had returned and he has been experiencing some mid upper abdominal/epigastric irritation for quite some time. Denies any significant cardiac history however he is diabetic, obese. I have ordered labs to include a CBC, CMP, magnesium level and a troponin. We will also get a portable view of the chest and an EKG. I have also ordered a GI cocktail for this patient. Last Recorded V/S: Last Vital Signs Temp 97 F 05/08/21 18:15 Pulse 77 05/08/21 18:15 Resp 16 05/08/21 18:15 BP 115/74 05/08/21 18:15 Pulse Ox 99 05/08/21 18:15 - Orders/Labs/Meds Orders: Active Orders 24 hr Category Date Time Status EKG Documentation Completion [RC] ASDIRECTED Care 05/08/21 18:26 Active Chest 1V Frontal [CR] Stat Exams 05/08/21 18:36 Taken EKG 12 Lead [EK] Stat Ther 05/08/21 18:26 Ordered Labs: Laboratory Tests 05/08/21 05/08/21 Range/Units 18:20 18:20 WBC 5.25 (4.23-9.07) K/mm3 RBC 4.94 (4.63-6.08) M/mm3 Hgb 13.3 L (13.7-17.5) gm/dl Hct 40.4 (40.1-51.0) % MCV 81.8 (79.0-92.2) fl MCH 26.9 (25.7-32.2) pg MCHC 32.9 (32.2-35.5) g/dl RDW Std Deviation 40.0 (35.1-43.9) fL Plt Count 175 (163-337) K/mm3 MPV 9.6 (9.4-12.3) fl Neut % (Auto) 55.5 (34.0-67.9) % Lymph % (Auto) 30.9 (21.8-53.1) % [place] % (Auto) 10.3 (5.3-12.2) % Eos % (Auto) 2.9 (0.8-7.0) Baso % (Auto) 0.2 (0.1-1.2) % Neut # (Auto) 2.92 (1.78-5.38) K/mm3 Lymph # (Auto) 1.62 (1.32-3.57) K/mm3 [place] # (Auto) 0.54 (0.30-0.82) K/mm3 Eos # (Auto) 0.15 (0.04-0.54) K/mm3 Baso # (Auto) 0.01 (0.01-0.08) K/mm3 Sodium 140 (136-145) mEq/L Potassium 4.1 (3.5-5.1) mEq/L Chloride 103 (98-107) mEq/L Carbon Dioxide 26 (21-32) mEq/L Anion Gap 15.1 H (5-15) BUN 16 (7-18) mg/dL Creatinine 1.0 (0.7-1.3) mg/dL Est Cr Clr Drug Dosing 114.17 mL/min Estimated GFR (MDRD) > 60 (>60) mL/min BUN/Creatinine Ratio 16.0 (14-18) Glucose 144 H (70-99) mg/dL Calcium 9.1 (8.5-10.1) mg/dL Magnesium 2.2 (1.8-2.4) mg/dL Total Bilirubin 0.7 (0.2-1.0) mg/dL AST 36 (15-37) U/L ALT 59 (16-63) U/L Alkaline Phosphatase 64 (46-116) U/L Troponin I < 0.017 (0.00-0.056) ng/mL Total Protein 7.6 (6.4-8.2) g/dl Albumin 4.3 (3.4-5.0) g/dl Globulin 3.3 gm/dL Albumin/Globulin Ratio 1.3 (1-2) Meds: Medications Discontinued Medications Generic Name Dose Route Start Last Admin Trade Name Freq PRN Reason Stop Dose Admin Al Hydroxide/Mg Hydroxide 30 0 ml 05/08/21 18:36 05/08/21 18:41 ml/ Lidocaine HCl 15 ml PO 05/08/21 18:37 45 ml ONETIME ONE Administration - Re-Assessments/Exams Free Text/Narrative Re-Assessment/Exam: 05/08/21 19:29 Hematology reveals a WBC of 5.25, hemoglobin 13.3, hematocrit 40.4, platelet count 175 Chemistry reveals a sodium of 140, potassium 4.1, chloride 103, carbon dioxide 26, anion gap 15.1, BUN 16, creatinine 1.0, GFR greater than 60, glucose 144, magnesium 2.2, total bilirubin 0.7, AST 36, ALT 59, alk phos 64, troponin less than 0.017 Nothing acute is appreciated on portable view of the chest. Formal radiologist report is pending. 05/08/21 19:53 Patient states GI cocktail did seem to help somewhat. Reviewed lab results and chest x-ray and EKG with the patient. Upon further evaluation the patient admits to drinking large amounts of coffee throughout the day, he also eats pickles just before bed, he eats many other meals immediately before going to bed. He also has not eating breakfast when he consumes his caffeine in the morning. All of these things contribute to reflux. Patient states that he is willing to try lifestyle modifications. He can take some Maalox as needed for GI reflux symptoms. He states he will follow-up with Dr. Reynoso regarding these concerns. Departure - Departure Time of Disposition: 19:57 Disposition: Home, Self-Care 01 Condition: Good Clinical Impression: Atypical chest pain Instructions: Nonspecific Chest Pain, Adult, [id number] Referrals: Lisa Reynoso MD [Primary Care Provider] - Forms: ED Department Discharge Additional Instructions: You were seen in the emergency department today with complaints of feeling like your throat is tight/closing. You also voiced that you do have some issues with reflux and epigastric issues. Full cardiac work-up was completed and this was unremarkable. You are not having a heart attack. Your EKG and chest x-ray looked good as well as your lab work. You were given a GI cocktail which is Maalox mixed with lidocaine and this did seem to help somewhat. We did discuss lifestyle changes to eating breakfast every day, decreasing your coffee intake to 1 cup daily, and not eating immediately before going to bed. Try these modifications and then follow-up with Dr. Reynoso as scheduled. Should your condition worsen or change, do not hesitate returning to the emergency department. Sepsis Event Note (ED) - Evaluation Sepsis Screening Result: No Definite Risk - Focused Exam Vital Signs: Vital Signs Temp Pulse Resp BP Pulse Ox 05/08/21 18:15 97 F 77 16 115/74 99 - My Orders Last 24 Hours: My Active Orders 05/08/21 18:26 EKG Documentation Completion [RC] ASDIRECTED EKG 12 Lead [EK] Stat 05/08/21 18:36 Chest 1V Frontal [CR] Stat - Assessment/Plan Last 24 Hours: My Active Orders 05/08/21 18:26 EKG Documentation Completion [RC] ASDIRECTED EKG 12 Lead [EK] Stat 05/08/21 18:36 Chest 1V Frontal [CR] Stat
--- NOTE | 2021-05-09 09:04 | CR ---
Chest: Portable view of the chest was obtained. Comparison: No prior chest imaging is available. Heart size and mediastinum are normal. Lungs are clear with no acute parenchymal change. Bony structures show nothing acute. Impression: 1. Nothing acute is appreciated on portable chest x-ray. Diagnostic code #1
== END 2021-05-08 20:16 | disposition home or self-care (01) ==
LOC: JD.ED 18:04
DX: R07.89 Other chest pain (principal); E11.9 Type 2 diabetes mellitus without complications; E03.9 Hypothyroidism, unspecified; E66.9 Obesity, unspecified; Z68.41 Body mass index [BMI] 40.0-44.9, adult; Z79.84 Long term (current) use of oral hypoglycemic drugs; Z79.899 Other long term (current) drug therapy
CPT/HCPCS: 36415; 71045; 80053; 83735; 84484; 85025; 93005; 99285; A9270; 93010; 99284